=== PATIENT | female | born 1950 | race Hispanic/Latino ===

== ENCOUNTER 2021-06-07 17:54 | Outpatient (CLI) | payer OTHER | END 2021-06-07 19:10 | disposition home or self-care (01) | LOC: RAD 17:54 | PROVIDERS: ATTEND Nurse Practitioner Family | DX: M54.59 Other low back pain (principal) ==

== ENCOUNTER 2021-11-14 08:26 | Emergency (ER) | payer OTHER ==
[~2021-11-14] VITALS: Ht 162.6 cm; Wt 72.6 kg
[~2021-11-14 08:26] MED LIST: AMLODIPINE BESYLATE PO; CHLORTHALID25 MG PO; KAPSPARGO SPRIN50 MG PO; LANTUS SOL100 UNIT/M SC; LIPITOR40 MG PO; LISI5TAB10 PO; METFORMIN HYD1000 MG PO
[2021-11-14 09:02] LABS: PLATELET COUNT 281 K/uL (152-353)
[2021-11-14 09:05] LABS: POTASSIUM 4.1 mmol/L (3.6-5.2)
[2021-11-14 09:25] LABS: PARTIAL THROMBOPLASTIN TIME 25.3 SECONDS (24.5-33.6)
[2021-11-14 10:52] VITALS: BP 140/79; TEMP 98.1
== END 2021-11-14 11:00 | disposition home or self-care (01) ==
LOC: ED 08:26
PROVIDERS: Hospitalist
DX: M25.552 Pain in left hip (principal); M16.12 Unilateral primary osteoarthritis, left hip; Z96.642 Presence of left artificial hip joint; I99.8 Other disorder of circulatory system
CPT/HCPCS: 36415; 80048; 80320; 85027; 85610; 85730; 96372; 99283; J1885; J2270; J2405

== ENCOUNTER 2021-12-07 12:27 | Outpatient (CLI) | payer OTHER ==
[2021-12-07 12:40] LABS: PLATELET COUNT 304 K/uL (152-353)
[2021-12-07 13:03] LABS: POTASSIUM 4.5 mmol/L (3.6-5.2)
== END 2021-12-07 19:06 | disposition home or self-care (01) ==
LOC: LAB 12:27
PROVIDERS: ATTEND Internal Medicine
DX: D50.8 Other iron deficiency anemias (principal); E11.9 Type 2 diabetes mellitus without complications; R00.0 Tachycardia, unspecified; I10 Essential (primary) hypertension
CPT/HCPCS: 80053; 80061; 83036; 84439; 84443; 85027

== ENCOUNTER 2021-12-20 11:34 | Outpatient (CLI) | payer OTHER | END 2021-12-20 19:34 | disposition home or self-care (01) | LOC: RAD 11:34 | PROVIDERS: ATTEND Internal Medicine | DX: K59.01 Slow transit constipation (principal) ==

== ENCOUNTER 2022-05-17 11:32 | Outpatient (CLI) | payer OTHER ==
[2022-05-17 11:47] LABS: PLATELET COUNT 329 K/uL (152-353)
== END 2022-05-17 20:35 | disposition home or self-care (01) ==
LOC: LAB 11:32
PROVIDERS: ATTEND Internal Medicine
DX: E11.9 Type 2 diabetes mellitus without complications (principal)
CPT/HCPCS: 80053; 80061; 83036; 84439; 84443; 85027

== ENCOUNTER 2022-11-30 12:41 | Outpatient (CLI) | payer OTHER ==
[2022-11-30 13:09] LABS: PLATELET COUNT 295 K/uL (152-353)
[2022-11-30 13:27] LABS: POTASSIUM 3.7 mmol/L (3.6-5.2)
== END 2022-11-30 21:05 | disposition home or self-care (01) ==
LOC: LAB 12:41
PROVIDERS: ATTEND Internal Medicine
DX: E11.9 Type 2 diabetes mellitus without complications (principal)
CPT/HCPCS: 80053; 80061; 83036; 84439; 84443; 85027

== ENCOUNTER 2023-06-05 13:32 | Outpatient (CLI) | payer OTHER ==
[2023-06-05 14:16] LABS: PLATELET COUNT 288 K/uL (152-353)
[2023-06-05 14:40] LABS: POTASSIUM 4.4 mmol/L (3.6-5.2)
== END 2023-06-05 19:45 | disposition home or self-care (01) ==
LOC: LAB 13:32
PROVIDERS: ATTEND Internal Medicine
DX: E11.9 Type 2 diabetes mellitus without complications (principal); R82.998 Other abnormal findings in urine
CPT/HCPCS: 80053; 80061; 81000; 83036; 84439; 84443; 85027; 87077; 87086; 87088; 87186